=== PATIENT | male | born 1950 | race Asian ===

== ENCOUNTER 2017-05-17 09:39 | Outpatient (CLI) | payer MEDICARE ==
[~2017-05-17 09:39] MED LIST: ATENOLOL50 MG ORAL; CALCIUM + D SO1 EACH PO; METAMUCIL POWD288 GM PO; MULTIVITAMINS1 EAC2 ORAL; PROTEIN POWDER454 GM PO; TENORMIN25 MG ORAL; VITAMIN D400 INTLU ORAL; [UNRECOGNIZED DRUG - OTHER] PO
--- NOTE | 2017-05-17 10:20 | GI Progress Note ---
Assessment/Plan Problems: (1) Colonoscopy planned SNOMED: 477819153 (2) Colon polyposis ICD Codes: K63.5 - Polyp of colon SNOMED: 83291410 (3) Elevated CEA ICD Codes: R97.0 - Elevated carcinoembryonic antigen [CEA] SNOMED: 49081830, 778522600 (4) PUD (peptic ulcer disease) ICD Codes: K27.9 - PUD (peptic ulcer disease) SNOMED: 87877952 Status: stable Status Narrative Seen with Dr. Becerril. Assessment/Plan Endoscopy Procedure Note Indication for Procedure: elevated CEA Procedures Performed: EGD Operative Findings/Diagnosis: gastritis TOMASA BECERRIL - Jan 07, 2016 11:18 05/29/14 - colonoscopy with colonic polyps x3 EGD/colonoscopy scheduled 06/01/17. - CLD and Suprep instructions given and acknowledged. Subjective Subjective black stools diarrhea after taking alot of fiber elevated CEA 7.2 Objective T 98.1 BP 138/86 P 75 98 RA denies any weight loss General Appearance: no apparent distress, alert Cardiovascular: normal rate Respiratory/Chest: normal breath sounds, no respiratory distress Abdominal Exam: normal bowel sounds, non tender, soft Extremities: normal range of motion Steph Castro N.P. May 17, 2017 10:20
== END 2017-05-17 10:15 | disposition home or self-care (01) ==
LOC: PAN 09:39
DX: K63.5 Polyp of colon (principal); R97.0 Elevated carcinoembryonic antigen [CEA]; K27.9 Peptic ulcer, site unspecified, unspecified as acute or chronic, without hemorrhage or perforation
CPT/HCPCS: 99211

== ENCOUNTER 2017-06-01 08:37 | Day surgery (SDC) | payer MEDICARE ==
[2017-06-01] VITALS (8 sets, daily range): BP systolic 105–133; BP diastolic 74–86
[~2017-06-01] VITALS: Ht 170.2 cm; Wt 65.8 kg
--- NOTE | 2017-06-01 06:32 | Anethesia Preoperative Eval ---
Anesthesia Pre-op PMH/ROS General Date of Evaluation: Jun 01, 2017 Time of Evaluation: 06:30 Anesthesiologist: maurice ASA Score: ASA 3 Mallampati Score Class I : Soft palate, uvula, fauces, pillars visible Class II: Soft palate, uvula, fauces visible Class III: Soft palate, base of uvula visible Class IV: Only hard plate visible Mallampati Classification: Class II Surgeon: kimberly Diagnosis: melena Surgical Procedure: egd/colonoscopy Anesthesia History: none Social History: smoking - nonsmoker Family History: no anesthesia problems Allergies: Coded Allergies: ASPIRIN (Verified Allergy, Severe, Shortness of Breath, 05/12/14) ALCOHOL (Verified Allergy, Mild, stuffy nose, 06/01/17) Uncoded Allergies: Cleaning Detergent (Adverse Reaction, Severe, Cough, Wheezing , 01/07/16) Medications: see eMAR Past Medical History Cardiovascular: Reports: HTN Pulmonary: Reports: asthma Gastrointestinal/Genitourinary: Reports: other - cholecystectomy Neurologic/Psychiatric: Reports: depression/anxiety HEENT: Reports: cataract (L), cataract (R), glaucoma Hematology/Immune: Reports: anemia Musculoskeletal/Integumentary: Reports: OA Anesthesia Pre-op Phys. Exam Physician Exam Last Vital Signs Date Time Temp Pulse Resp B/P (MAP) Pulse Ox O2 Delivery O2 Flow Rate FiO2 06/01/17 09:20 98.4 65 19 133/76 100 Room Air Constitutional: NAD Neurologic: CN 2-12 intact Cardiovascular: RRR Respiratory: CTA Gastrointestinal: S/NT/ND Airway Exam Mallampati Score: Class II MO: full Neck: supple TMD: 3fb ROM: full Teeth: intact Anesthesia Pre-op A/P Studies Pre-op Studies: EKG - nsr Risk Assessment & Plan Assessment: asa3 Plan: mac Status Change Before Surgery: No Pre-Antibiotics Drug: CARMELINA Hoang Jun 01, 2017 06:32
[2017-06-01] MEDS ORDERED: IRON LIQUID (09:12)
[2017-06-01] MEDS ORDERED: MELATONIN1 MG/1 ML PO (09:12)
[2017-06-01] MEDS ORDERED: NORVASC2.5 MG ORAL (09:12)
[2017-06-01] MEDS ORDERED: ASTAXANTHIN4 MG PO (09:12)
[2017-06-01] MEDS ORDERED: [UNRECOGNIZED DRUG - OTHER] PO (09:12)
[2017-06-01] MEDS ORDERED: Propofol 10mg/ml 20ml IV ONE (09:30)
[2017-06-01] MEDS ORDERED: Lidocaine 1% MPF 10mg/ml 5ml ONE (09:30)
[2017-06-01 09:31] LABS: BASOPHILS % (AUTO) 1.4 % (0.0-2.0); EOSINOPHILS % (AUTO) 10.1 % (0.0-3.0); LYMPHOCYTES % (AUTO) 41.5 % (20.0-45.0); MEAN CORPUSCULAR HEMOGLOBIN 31.3 PG (27.0-31.0); MEAN CORPUSCULAR HGB CONC 32.8 G/DL (32.0-36.0); MEAN CORPUSCULAR VOLUME 95 FL (80-99); MONOCYTES % (AUTO) 14.7 % (1.0-10.0); NEUTROPHILS % (AUTO) 32.2 % (45.0-75.0); PLATELET COUNT 162 K/UL (150-450); RED BLOOD COUNT 4.73 M/UL (4.70-6.10); RED CELL DISTRIBUTION WIDTH 11.5 % (11.6-14.8); WHITE BLOOD COUNT 3.9 K/UL (4.8-10.8)
--- NOTE | 2017-06-01 09:39 | Pre-Procedure Note/Attestation ---
Pre-Procedure Note/Attestation Complete Prior to Procedure Planned Procedure: not applicable Procedure Narrative: esophagogastroduodenoscopy and colonoscopy Indications for Procedure Pre-Operative Diagnosis: elevated CEA, GIB Attestation I attest that I discussed the nature of the procedure; its benefits; risks and complications; and alternatives (and the risks and benefits of such alternatives ), prior to the procedure, with the patient (or the patient's legal wholesale representative). I attest that, if there was a reasonable possibility of needing a blood transfusion, the patient (or the patient's legal wholesale representative) was given the [facility] standardized written summary, pursuant to the [place] Blood Safety Act ([place] Health and Safety Code # 1645, as amended). I attest that I re-evaluated the patient just prior to the surgery and that there has been no change in the patient's H&P, except as documented below: TOMASA MÉNDEZ Jun 01, 2017 09:39
--- NOTE | 2017-06-01 09:40 | Short Stay Surgery H&P ---
History of Present Illness History of Present Illness Chief Complaint see recent consult note HPI Marnie Fuchs is a 67 year old male who was admitted on for Black Tarry Stool Patient History Allergies: Coded Allergies: ASPIRIN (Verified Allergy, Severe, Shortness of Breath, 05/12/14) ALCOHOL (Verified Allergy, Mild, stuffy nose, 06/01/17) Uncoded Allergies: Cleaning Detergent (Adverse Reaction, Severe, Cough, Wheezing , 01/07/16) PAST MEDICAL HISTORY: Past Surgeries: Social History: Medication History Scheduled Amlodipine Besylate (Norvasc), 2.5 MG ORAL DAILY, (Reported) Astaxanthin (Astaxanthin), 10 MG PO PRN, (Reported) Ca Carbonate/Vitamin D3/Vit K (Calcium + D Soft Chewable Tab), 1 EACH PO DAILY, (Reported) Melatonin (Melatonin), 1 MG PO HS, (Reported) Multivitamins* (Multivitamins*), 1 TAB ORAL DAILY, (Reported) Protein Supplement (Protein Powder), 454 GM PO DAILY, (Reported) Psyllium Husk/Aspartame (Metamucil Sugar Free Powder), 288 GM PO DAILY, ( Reported) Vitamin D (Vitamin D3), 400 UNITS ORAL DAILY, (Reported) [Phcnogenol], 100 MG PO 2XW, (Reported) Miscellaneous Medications [Iron Liquid], (Reported) Discontinued Medications Atenolol (Tenormin), 25 MG ORAL BID, (Reported) Discontinued Reason: Pt stopped taking med [Desmet Tree Extract], 1 CAP PO DAILY, (Reported) Discontinued Reason: Pt stopped taking med Physical Exam Vital Signs Last Vital Signs Date Time Temp Pulse Resp B/P (MAP) Pulse Ox O2 Delivery O2 Flow Rate FiO2 06/01/17 09:20 98.4 65 19 133/76 100 Room Air Labs Laboratory Tests Test 06/01/17 09:15 White Blood Count 3.9 K/UL (4.8-10.8) L Red Blood Count 4.73 M/UL (4.70-6.10) Hemoglobin 14.8 G/DL (14.2-18.0) Hematocrit 45.1 % (42.0-52.0) Mean Corpuscular Volume 95 FL (80-99) Mean Corpuscular Hemoglobin 31.3 PG (27.0-31.0) H Mean Corpuscular Hemoglobin Concent 32.8 G/DL (32.0-36.0) Red Cell Distribution Width 11.5 % (11.6-14.8) L Platelet Count 162 K/UL (150-450) Mean Platelet Volume 6.0 FL (6.5-10.1) L Neutrophils (%) (Auto) 32.2 % (45.0-75.0) L Lymphocytes (%) (Auto) 41.5 % (20.0-45.0) Monocytes (%) (Auto) 14.7 % (1.0-10.0) H Eosinophils (%) (Auto) 10.1 % (0.0-3.0) H Basophils (%) (Auto) 1.4 % (0.0-2.0) Sodium Level Pending Potassium Level Pending Chloride Level Pending Carbon Dioxide Level Pending Blood Urea Nitrogen Pending Creatinine Pending Estimat Glomerular Filtration Rate Pending Glucose Level Pending Calcium Level Pending Total Bilirubin Pending Aspartate Amino Transf (AST/SGOT) Pending Alanine Aminotransferase (ALT/SGPT) Pending Alkaline Phosphatase Pending Total Protein Pending Albumin Pending Globulin Pending Plan Attestation Are the patient's medical conditions optimized for surgery? TOMASA MÉNDEZ Jun 01, 2017 09:40
[2017-06-01 09:44] LABS: ALBUMIN/GLOBULIN RATIO 1.6 (1.0-2.7); CALCIUM 9.2 mg/dL (8.6-10.2); CREATININE 1.4 mg/dL (0.7-1.2); GLOMERULAR FILTRATION RATE 50.4 mL/min (>60); POTASSIUM 3.8 mEQ/L (3.4-4.9); TOTAL PROTEIN 7.3 g/dL (6.6-8.7)
[2017-06-01 10:03] LABS: BILIRUBIN,DIRECT 0.3 mg/dL (0.1-0.3)
[2017-06-01] MEDS ORDERED: DiphenhydrAMINE 50mg/ml Inj IVP PRN (10:15)
[2017-06-01] MEDS ORDERED: Hydromorphone 0.5mg/0.5ml inj IVP PRN (10:15)
[2017-06-01] MEDS ORDERED: Midazolam 2mg/2ml Inj IVP PRN (10:15)
[2017-06-01] MEDS ORDERED: Atropine Inj 1mg/10ml Syr IV PRN (10:15)
--- NOTE | 2017-06-01 10:20 | Immediate Post-Op Evaluation ---
Immediate Post-Op Evalulation Immediate Post-Op Evalulation Procedure: egd/colonoscopy Date of Evaluation: Jun 01, 2017 Time of Evaluation: 10:32 IV Fluids: 0.9ns 300ml Blood Products: none Estimated Blood Loss: negligible Blood Pressure Systolic: 127 Blood Pressure Diastolic: 89 Pulse Rate: 73 Respiratory Rate: 18 O2 Sat by Pulse Oximetry: 100 Temperature (Fahrenheit): 98.2 Pain Score (1-10): 0 Nausea: No Vomiting: No Complications none Patient Status: awake, reacts, patent Hydration Status: adequate Drug: CARMELINA Hoang Jun 01, 2017 10:20
--- NOTE | 2017-06-01 10:20 | Endoscopy Procedure Note ---
Endoscopy Procedure Note Indication for Procedure: eleated cea Procedures Performed: EGD, colonoscopy Operative Findings/Diagnosis: gastritis, multiple colon polyps Specimen: yes Pt Tolerated Procedure Well: Yes Estimated Blood Loss: none Anesthesiologist: wyatt Anesthesia: MAC Implant(s) used?: No 50 yrs or older w/o bx or poly: No 10yrs. F/U not recommended: Yes If not recommended, why?: Above average risk 10 yrs. F/U needed: Yes 18 years or older w/prev. colo: Yes <3yrs. since last colonoscopy: No TOMASA MÉNDEZ Jun 01, 2017 10:20
--- NOTE | 2017-06-01 11:54 | 48 Hour Post Anesthesia Eval ---
Post Anesthesia Evaluation Procedure: egd/colonoscopy Date of Evaluation: Jun 01, 2017 Time of Evaluation: 11:46 0: 86 Pulse Rate: 62 Respiratory Rate: 18 Temperature (Fahrenheit): 98.2 O2 Sat by Pulse Oximetry: 100 Airway: patent Nausea: No Vomiting: No Pain Intensity: 0 Hydration Status: adequate Cardiopulmonary Status: stable Mental Status/LOC: patient returned to baseline Post-Anesthesia Complications: none Follow-up care needed: N/A CARMELINA CORDOBA Jun 01, 2017 11:54
--- NOTE | 2017-06-01 20:17 | Procedure Note ---
DATE OF PROCEDURE: 06/01/2017 SURGEON: Sadiq Becerril M.D. PROCEDURE: Upper endoscopy with biopsy and colonoscopy with biopsy. ANESTHESIOLOGIST: Heather Love M.D. INSTRUMENT: Olympus adult flexible upper endoscope and colonoscope. INDICATION: Elevated CEA and dark black stools. REASON FOR PROCEDURE: The procedure, risks, benefits, and possible consequences, including hemorrhage, aspiration, perforation and infection, and alternative treatments, were explained to the patient/legal guardian by Dr. Sadiq Becerril and the patient/legal guardian understood and accepted these risks. PROCEDURE: After informed consent was obtained and the patient was adequately sedated, Olympus upper endoscope was advanced from mouth into the second portion of duodenum and retroflexion was performed of the stomach. The patient had evidence of diffuse gastritis. Random biopsy from antrum of the stomach was obtained to rule out H. pylori infection. On the retroflexion, we saw a small polyp in the fundic area with biopsy of that polyp, most probably fundic gland polyps. On the way back removing the scope, we saw a large inlet patch below the upper esophagus sphincter. At this time, the upper endoscope was fully removed and the patient was turned over for colonoscopy. First, a rectal exam was performed, which was positive for internal hemorrhoid. Then, scope was advanced from rectum into the cecum documented by appendiceal orifice, ileocecal valve, and right upper quadrant palpation. Quality of prep was very good. The patient had mild melanosis coli throughout the colon. The patient had one polyp in the proximal ascending colon, very small maybe about 3 mm, removed with cold biopsy forceps technique. The patient had multiple hyperplastic-looking polyps in the rectosigmoid area, only two of them were biopsied. Retroflexion of rectum showed evidence of internal hemorrhoids. The patient tolerated the procedure well without any complication. SUMMARY OF FINDINGS: 1. Large inlet patch. 2. Gastritis with biopsy. 3. One gastric polyp was biopsied. 4. Multiple colonic polyps where three of them were biopsied, mostly hyperplastic in the rectosigmoid area, see above for details. 5. Internal hemorrhoids. RECOMMENDATIONS: Follow up biopsy results and treat accordingly. I want to thank Dr. Sadiq Sultana for this kind referral. Sadiq Becerril M.D. DR: VIOLA JOB#: [id number] CC: Sadiq Sultana M.D.; Fax#: [phone]
== END 2017-06-01 11:30 | disposition home or self-care (01) ==
LOC: GAS 08:37
DX: K29.50 Unspecified chronic gastritis without bleeding (principal); K63.5 Polyp of colon; K31.7 Polyp of stomach and duodenum; K64.8 Other hemorrhoids; K21.9 Gastro-esophageal reflux disease without esophagitis; K63.89 Other specified diseases of intestine; R97.0 Elevated carcinoembryonic antigen [CEA]; Z88.6 Allergy status to analgesic agent; Z91.09 Other allergy status, other than to drugs and biological substances
CPT/HCPCS: 36415; 80053; 82248; 85025; 93005; 94003; 94150

== ENCOUNTER → 2017-06-15 | Outpatient (CLI) | payer MEDICARE ==
[~2017-06-15] MED LIST changes: +ASTAXANTHIN4 MG PO; +IRON LIQUID; +MELATONIN1 MG/1 ML PO; +NORVASC2.5 MG ORAL; +[UNRECOGNIZED DRUG - OTHER] PO
--- NOTE | 2017-06-15 13:37 | GI Progress Note ---
Assessment/Plan Status: stable Status Narrative Seen with Dr. Becerril. Assessment/Plan SUMMARY OF FINDINGS reviewed with patient: 1. Large inlet patch. 2. Gastritis with biopsy. 3. One gastric polyp was biopsied. 4. Multiple colonic polyps where three of them were biopsied, mostly hyperplastic in the rectosigmoid area, see above for details. 5. Internal hemorrhoids. RECOMMENDATIONS: Follow up biopsy results and treat accordingly. >> negative for metaplasia and negative for HP RTC x 6 months/prn repeat colonoscopy x 3 years Subjective Subjective RUQ discomfort here for colonoscopy review Objective T 98.3 BP 146/93 P 75 99 RA General Appearance: no apparent distress, alert Cardiovascular: normal rate Respiratory/Chest: normal breath sounds, no respiratory distress Abdominal Exam: normal bowel sounds, non tender, soft Extremities: normal range of motion Steph Castro N.P. Jun 15, 2017 13:37
[2017-06-15 14:50] VITALS: BP 146/93
== END | disposition home or self-care (01) ==
LOC: PAN 12:55
DX: K29.70 Gastritis, unspecified, without bleeding (principal); K31.7 Polyp of stomach and duodenum; K63.5 Polyp of colon; K64.8 Other hemorrhoids
CPT/HCPCS: 99211